=== PATIENT | female | born 1980 ===

== ENCOUNTER 2021-05-04 16:29 | Emergency (ER) | payer MEDICAID ==
[~2021-05-04] VITALS: Ht 170.2 cm; Wt 78.0 kg
[2021-05-04 16:40] VITALS: BP 130/74
[2021-05-04] MEDS ORDERED: ACETAMINOPHEN 500 MG TAB PO ONE (21:00)
== END 2021-05-04 22:40 | disposition home or self-care (01) ==
LOC: EDBD 16:29 → ER 16:29
DX: M62.838 Other muscle spasm (principal); G44.209 Tension-type headache, unspecified, not intractable; R09.81 Nasal congestion; H53.8 Other visual disturbances; R09.82 Postnasal drip; H92.02 Otalgia, left ear
CPT/HCPCS: 70450; 70486; 72125